=== PATIENT | female | born 1965 | race Caucasian/White ===

== ENCOUNTER 2021-01-12 06:58 | Day surgery (SDC) | payer OTHER ==
[2021-01-09 11:20] LABS: COVID AG,FIA SOURCE NASOPHARYNGEAL
[~2021-01-12] VITALS: Ht 154.9 cm; Wt 70.0 kg
[~2021-01-12 06:58] MED LIST: SODIUM CHLORIDE 0.9% 1,000 ML IV ONE
[2021-01-12] MEDS ORDERED: SODIUM CHLORIDE 0.9% 1,000 ML ONE (07:16)
[2021-01-12] MEDS ORDERED: MIDAZOLAM HCL 2 MG/2 ML VIAL ONE (07:54)
[2021-01-12] MEDS ORDERED: FentaNYL CITRATE PF 100 MCG/2 ML VIAL ONE (07:55)
[2021-01-12] MEDS ORDERED: MethylPREDNISolone SOD SUCC 125 MG/2 ML VIAL IVP ONE (08:45)
[2021-01-12] MEDS ORDERED: LIDOCAINE 2% 30 ML JELLY ONE (17:48)
[2021-01-12] MEDS ORDERED: LIDOCAINE 4% 50 ML SOLUTION ONE (17:48)
[2021-01-12] MEDS ORDERED: BENZOCAINE 20% 50 MCG/SPRAY 57 GM ONE (17:48)
[2021-01-12] MEDS ORDERED: ALBUTEROL SULFATE 2.5 MG/0.5 ML NEB SOLUTION NEB ONE (17:48)
[2021-01-12] MEDS ORDERED: OXYGEN THERAPY IH SCH (20:00)
== END 2021-01-12 09:50 | disposition home or self-care (01) ==
LOC: SURGERY 06:58
PROVIDERS: ATTEND Internal Medicine Critical Care Medicine
DX: B37.0 Candidal stomatitis (principal); J38.4 Edema of larynx; I10 Essential (primary) hypertension; Z98.890 Other specified postprocedural states
CPT/HCPCS: 31623; 31624; 71045; 87070; 87101; 87205; 87206; 87220; 87426; 88108; 88184; 88185; 88312; C9803; J2250; J2930; J3010; J7030; J7613; Z7610